=== PATIENT | male | born 1970 | race Asian ===

== ENCOUNTER 2017-07-10 19:45 | Observation (INO) | payer SELFPAY ==
[2017-07-10] MEDS ORDERED: NS 0.9% 1000 ML* 1,000 ML IV ONE ×3 (19:58→21:33)
[2017-07-10] MEDS ORDERED: Aspirin 81 mg CHEW TAB* 81 MG TAB.CHEW PO ONE (19:58)
[2017-07-10] MEDS ORDERED: LORazepam INJ* 2 MG/ML 1 ML VIAL IV PUSH ONE (19:59)
[2017-07-10] MEDS ORDERED: Famotidine TAB* 20 MG PO ONE (19:59)
[2017-07-10 20:29] LABS: ABS Basophils 0 10^3/ul (0-0.2); ABS Eosinophils 0 10^3/ul (0-0.6); ABS Lymphocytes 0.6 10^3/ul (1.0-4.8); ABS Monocytes 0.4 10^3/ul (0-0.8); ABS Neutrophils 5.8 10^3/ul (1.5-7.7); ABS Nucleated RBC 0 10^3/ul; Eosinophil % 0.6 % (0-6); Hematocrit 49 % (42-52); Hemoglobin 16.3 g/dl (14.0-18.0); Lymphocyte % 9.3 % (25-47); Mean Corpuscular HGB Conc 33 g/dl (31-36); Mean Corpuscular Hemoglobin 30 pg (27-31); Mean Corpuscular Volume 91 fL (80-94); Nucleated Red Blood Cells % 0; Platelet Count 158 10^3/ul (150-450); Red Blood Count 5.41 10^6/ul (4.0-5.4); Red Cell Distribution Width 15 % (10.5-15); White Blood Count 6.9 10^3/ul (3.5-10.8)
[2017-07-10 20:32] LABS: INR 0.93 (0.77-1.02)
--- NOTE | 2017-07-10 20:41 | RAD ---
Indication: Shortness of breath, chest pain. Arrhythmia. Comparison: April 14, 2008 CT abdomen Technique: Upright AP 2020 hours Report: Clear lungs and pleural spaces. Negative for pneumothorax. The heart, pulmonary vasculature, and mediastinal contours are unremarkable. Unremarkable osseous structures and soft tissue contours. IMPRESSION: No evidence for acute intrathoracic disease.
[2017-07-10 20:42] LABS: EGFR Non-African American 87.8 (>60)
[2017-07-10] MEDS ORDERED: Metoprolol Tartrate IV* 1 MG/ML 5 ML VIAL IV ONE (21:33)
[2017-07-10] MEDS ORDERED: Labetalol IV* 5 MG/ML 20 ML VIAL IV PUSH ONE (22:38)
--- NOTE | 2017-07-11 02:05 | ED ---
Guillermo Hunt Gabriel, scribed for Mayco Thakkar MD on 07/10/17 at 1958 . HPI Chest Pain - HPI Summary HPI Summary: This patient is a 47 year old M presenting to [facility] accompanied by his with a chief complaint of CP that began an hour ago. The pain began at rest and located diffusely. The patient rates the pain 5/10 in severity. Patient reports SOB, fatigue, decreased sleep, increased EtOH, and depression due to recent of his mother. Pt states he felt ill since last night but the CP did not begin till this morning. Hx HTN and fibromyalgia. Family history of CAD. - History of Current Complaint Chief Complaint: EDChestPainROMI Time Seen by Provider: 07/10/17 19:51 Hx Obtained From: Patient Onset/Duration: Started Hours Ago - 1, Still Present Timing: Constant Initial Severity: Moderate Current Severity: Moderate Pain Intensity: 5 Pain Scale Used: 0-10 Numeric Chest Pain Location: Diffuse Chest Pain Radiates: No Associated Signs and Symptoms: Positive: Other: - SOB, fatigue, decreased sleep , increased EtOH, depression due to recent of his mother, - Allergy/Home Medications Allergies/Adverse Reactions: Allergies Allergy/AdvReac Type Severity Reaction Status Date / Time cashew nut Allergy See Comment Verified 07/10/17 20:33 MS Amoxicillin [Amoxicillin] Allergy GI Upset Verified 02/11/14 16:42 Home Medications: Home Medications Multivitamins/Minerals TAB* [Theragran/minerals TAB*] 1 tab PO DAILY 07/10/17 [ History Confirmed 07/10/17] Sertraline* [Zoloft*] 200 mg PO QAM 07/10/17 [History Confirmed 07/10/17] clonazePAM TAB(*) [KlonoPIN TAB(*)] 2 mg PO QPM PRN 07/10/17 [History Confirmed 07/10/17] PMH/Surg Hx/FS Hx/Imm Hx Cardiovascular History: Reports: Hx Hypertension Musculoskeletal History: Reports: Hx Fibromyalgia Psychiatric History: Denies: Hx Eating Disorder, Hx of Violent Episodes Against Others Infectious Disease History: No Infectious Disease History: Denies: Traveled Outside the [place] in Last 30 Days - Family History Known Family History: Positive: Cardiac Disease, Hypertension Negative: Diabetes, Renal Disease - Social History Occupation: Employed Full-time - self Lives: With Family Alcohol Use: None Substance Use Type: Reports: Other Substance Use Comment - Amount & Last Used: UNKNOWN Smoking Status (MU): Never Smoked Tobacco Review of Systems Positive: Other - and increased alcohol use Positive: Chest Pain Positive: Shortness Of Breath Positive: Depressed - due to mothers All Other Systems Reviewed And Are Negative: Yes Physical Exam - Summary Physical Exam Summary: Appearance: Well appearing, no pain distress, flat affect, no distress Skin: warm, dry, reflects adequate perfusion Head/face: normal Eyes: EOMI, MICHELET ENT: normal Neck: supple, non-tender Respiratory: CTA, breath sounds present Cardiovascular: tachy but regular, pulses symmetrical, hypertensive Abdomen: non-tender, soft Bowel Sounds: present Musculoskeletal: normal, strength/ROM intact Neuro: normal, sensory motor intact, A&Ox3 Triage Information Reviewed: Yes Vital Signs On Initial Exam: Initial Vitals Temp Pulse Resp BP Pulse Ox 98.7 F 124 22 178/112 98 07/10/17 19:47 07/10/17 19:47 07/10/17 19:47 07/10/17 19:47 07/10/17 19:47 Vital Signs Reviewed: Yes Diagnostics - Vital Signs Vital Signs Temp Pulse Resp BP Pulse Ox 07/10/17 19:47 98.7 F 124 22 178/112 98 - Laboratory Lab Results: Lab Results 07/10/17 07/10/17 07/10/17 Range/Units 20:05 20:05 20:05 WBC 6.9 (3.5-10.8) 10^3/ul RBC 5.41 H (4.0-5.4) 10^6/ul Hgb 16.3 (14.0-18.0) g/dl Hct 49 (42-52) % MCV 91 (80-94) fL MCH 30 (27-31) pg MCHC 33 (31-36) g/dl RDW 15 (10.5-15) % Plt Count 158 (150-450) 10^3/ul MPV 9.0 (7.4-10.4) um3 Neut % (Auto) 83.6 H (38-83) % Lymph % (Auto) 9.3 L (25-47) % [place] % (Auto) 6.3 (0-7) % Eos % (Auto) 0.6 (0-6) % Baso % (Auto) 0.2 (0-2) % Absolute Neuts (auto) 5.8 (1.5-7.7) 10^3/ul Absolute Lymphs (auto) 0.6 L (1.0-4.8) 10^3/ul Absolute Monos (auto) 0.4 (0-0.8) 10^3/ul Absolute Eos (auto) 0 (0-0.6) 10^3/ul Absolute Basos (auto) 0 (0-0.2) 10^3/ul Absolute Nucleated RBC 0 10^3/ul Nucleated RBC % 0 INR (Anticoag Therapy) 0.93 (0.77-1.02) APTT 29.6 (26.0-36.3) seconds D-Dimer, Quantitative < 200 (Less Than 230) ng/mL Sodium (139-145) mmol/L Potassium (3.5-5.0) mmol/L Chloride (101-111) mmol/L Carbon Dioxide (22-32) mmol/L Anion Gap (2-11) mmol/L BUN (6-24) mg/dL Creatinine (0.67-1.17) mg/dL Est GFR ( Amer) (>60) Est GFR (Non-Af Amer) (>60) BUN/Creatinine Ratio (8-20) Glucose (70-100) mg/dL Lactic Acid (0.5-2.0) mmol/L Calcium (8.6-10.3) mg/dL Total Bilirubin (0.2-1.0) mg/dL AST (13-39) U/L ALT (7-52) U/L Alkaline Phosphatase (34-104) U/L Troponin I (<0.04) ng/mL B-Natriuretic Peptide 37 ( - 100) pg/mL Total Protein (6.4-8.9) g/dL Albumin (3.2-5.2) g/dL Globulin (2-4) g/dL Albumin/Globulin Ratio (1-3) Lipase (11.0-82.0) U/L TSH (0.34-5.60) mcIU/mL Serum Alcohol (<10) mg/dL 07/10/17 07/10/17 07/10/17 Range/Units 20:05 20:05 22:55 WBC (3.5-10.8) 10^3/ul RBC (4.0-5.4) 10^6/ul Hgb (14.0-18.0) g/dl Hct (42-52) % MCV (80-94) fL MCH (27-31) pg MCHC (31-36) g/dl RDW (10.5-15) % Plt Count (150-450) 10^3/ul MPV (7.4-10.4) um3 Neut % (Auto) (38-83) % Lymph % (Auto) (25-47) % [place] % (Auto) (0-7) % Eos % (Auto) (0-6) % Baso % (Auto) (0-2) % Absolute Neuts (auto) (1.5-7.7) 10^3/ul Absolute Lymphs (auto) (1.0-4.8) 10^3/ul Absolute Monos (auto) (0-0.8) 10^3/ul Absolute Eos (auto) (0-0.6) 10^3/ul Absolute Basos (auto) (0-0.2) 10^3/ul Absolute Nucleated RBC 10^3/ul Nucleated RBC % INR (Anticoag Therapy) (0.77-1.02) APTT (26.0-36.3) seconds D-Dimer, Quantitative (Less Than 230) ng/mL Sodium 137 L (139-145) mmol/L Potassium 3.9 (3.5-5.0) mmol/L Chloride 98 L (101-111) mmol/L Carbon Dioxide 28 (22-32) mmol/L Anion Gap 11 (2-11) mmol/L BUN 13 (6-24) mg/dL Creatinine 0.92 (0.67-1.17) mg/dL Est GFR ( Amer) 112.9 (>60) Est GFR (Non-Af Amer) 87.8 (>60) BUN/Creatinine Ratio 14.1 (8-20) Glucose 178 H (70-100) mg/dL Lactic Acid 4.4 H* (0.5-2.0) mmol/L Calcium 9.3 (8.6-10.3) mg/dL Total Bilirubin 1.00 (0.2-1.0) mg/dL AST 37 (13-39) U/L ALT 42 (7-52) U/L Alkaline Phosphatase 49 (34-104) U/L Troponin I 0.01 0.01 (<0.04) ng/mL B-Natriuretic Peptide ( - 100) pg/mL Total Protein 8.2 (6.4-8.9) g/dL Albumin 4.6 (3.2-5.2) g/dL Globulin 3.6 (2-4) g/dL Albumin/Globulin Ratio 1.3 (1-3) Lipase < 10 L (11.0-82.0) U/L TSH 0.80 (0.34-5.60) mcIU/mL Serum Alcohol < 10 (<10) mg/dL Result Diagrams: 07/10/17 20:05 07/10/17 20:05 Lab Statement: Any lab studies that have been ordered have been reviewed, and results considered in the medical decision making process. - Radiology CXR Radiology Interpretation Completed By: Radiologist - No evidence for acute intrathoracic disease. ED physician has reviewed this report. - EKG 1944 Cardiac Rate: Tachycardia EKG Rhythm: Sinus Tachycardia - at 113 BPM EKG Interpretation: nml axis, LVH criteria, nml ST Re-Evaluation - Re-Evaluation First Eval Re-Evaluation Time: 21:33 Change: Improved Comment: The patient's pain has resolved but he is still hypertensive. Second Eval Re-Evaluation Time: 22:10 Change: Improved Comment: Pt states he would like to go home. I offered him admission and he declined. Third Eval Re-Evaluation Time: 22:40 Change: Unchanged Comment: I suggested the patient should be admitted and he agrees. Chest Pain Course/Dx - Course Course Of Treatment: Pt with CP and hx of not sleeping due to bereavement. Also drinking heavily for last 2mo or so since mother . CP improved with tx here but pt remains hypertensive. IV labetalol given. Neg lipase. 1st trop neg. D/W hospitalist who will admit. Neg ddimer. - Chest Pain Differential Diagnosis/HQI/PQRI: Acute ID, ACS, GI Disease, Other: - pancreatitis - Diagnoses Provider Diagnoses: Chest pain, HTN (hypertension), Alcoholism, Adjustment disorder - Provider Notifications Discussed Care Of Patient With: Ricardo Anderson Time Discussed With Above Provider: 22:39 Instructed by Provider To: Admit As Inpatient Discharge - Sign-Out/Discharge Documenting (check all that apply): Discharge - Discharge Plan Condition: Fair Disposition: ADMITTED TO [facility] - Billing Disposition and Condition Condition: FAIR Disposition: [facility] The documentation as recorded by the Guillermo arias Gabriel accurately reflects the service I personally performed and the decisions made by me, Mayco Thakkar MD.
--- NOTE | 2017-07-11 03:34 | HP ---
H&P (Free Text) History and Physical: PCP: Candido Parsons MD Date/Time: 07/11/2017 0030 CC: chest pain HPI: Mr Larios is a 47YO male HX fibromyalgia who presents with onset Friday evening ~1800 of sharp non-radiating non-exertional L anterior chest pain associated with SOB, palpiations, light-headedness, & sweats, but no N/V, cough, congestion, or other issues. He denies change in activity or injury. There are no exacerbating or alleviating factors. He also reports some associated weakness of the LUE, but no other weakness, numbness, tingling, change in speech/swallow/vision, or other issues. He had a similar episode ~1 week ago. The symptoms wax and wane, but tonight were continuous for ~1 hour prompting him to present for evaluation. Symptoms have no alleviating factors, but are worse if he doesn't sleep well. He is currently pain free. Of note, he states he has been drinking > a fifth of liquor daily for the past week due to stress from his mother's passing. However, when asked when she passed he replies , "March". While in the ED, he did become tackycardic into the 110s which resolved with lorazepam. 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[employer]; full code status FamHx: Mother: passed at 73 2nd CAD in Mar 2017; Father: passed at 29 in a MVA; 2 brothers: one's health unknown, the other with "stomach problems" ROS: as above, otherwise reviewed and all were negative vitals: Vital Signs Temp 36.7 C 07/11/17 02:46 Pulse 74 07/11/17 02:46 Resp 16 07/11/17 02:46 BP 136/85 07/11/17 02:46 Pulse Ox 97 07/11/17 02:46 Intake & Output 07/10/17 07/10/17 07/11/17 11:59 23:59 11:59 Intake Total 4000 Balance 4000 Weight 90.718 kg 90.809 kg Intake: IV Fluids 1999 IVPB 1999 Constitutional: NAD, normally developed, obese male HEENM: atraumatic; sclera/conjunctiva: anicteric/clear; hearing: clinically intact; oropharynx: clear, moist Neck: soft tissue: non-tender; thyroid: normal Pulmonary: clear to auscultation bilaterally, good aeration, no accessory muscle use CV: RR/RR, normal S1S2, no carotid bruit, no jugular venous distention, 2+ B DP/ PT, no edema Abdominal: soft, non-distended, non-tender, no rebound/guarding/rigidity, normoactive bowel sounds, no hepatosplenomegaly or masses, no costovertebral angle tenderness Musculoskeletal: general: grossly intact; gait: normal Integumental: normal appearance and texture of exposed skin Psychiatric orientation: AA&O to PPS affect: calm mood: cooperative eye contact: fair to good content: mostly reliable responses: timely insight: fair Testing: Lab Results 07/10/17 07/10/17 07/10/17 Range/Units 20:05 20:05 20:05 WBC 6.9 (3.5-10.8) 10^3/ul RBC 5.41 H (4.0-5.4) 10^6/ul Hgb 16.3 (14.0-18.0) g/dl Hct 49 (42-52) % MCV 91 (80-94) fL MCH 30 (27-31) pg MCHC 33 (31-36) g/dl RDW 15 (10.5-15) % Plt Count 158 (150-450) 10^3/ul MPV 9.0 (7.4-10.4) um3 Neut % (Auto) 83.6 H (38-83) % Lymph % (Auto) 9.3 L (25-47) % [place] % (Auto) 6.3 (0-7) % Eos % (Auto) 0.6 (0-6) % Baso % (Auto) 0.2 (0-2) % Absolute Neuts (auto) 5.8 (1.5-7.7) 10^3/ul Absolute Lymphs (auto) 0.6 L (1.0-4.8) 10^3/ul Absolute Monos (auto) 0.4 (0-0.8) 10^3/ul Absolute Eos (auto) 0 (0-0.6) 10^3/ul Absolute Basos (auto) 0 (0-0.2) 10^3/ul Absolute Nucleated RBC 0 10^3/ul Nucleated RBC % 0 INR (Anticoag Therapy) 0.93 (0.77-1.02) APTT 29.6 (26.0-36.3) seconds D-Dimer, Quantitative < 200 (Less Than 230) ng/mL Sodium (139-145) mmol/L Potassium (3.5-5.0) mmol/L Chloride (101-111) mmol/L Carbon Dioxide (22-32) mmol/L Anion Gap (2-11) mmol/L BUN (6-24) mg/dL Creatinine (0.67-1.17) mg/dL Est GFR ( Amer) (>60) Est GFR (Non-Af Amer) (>60) BUN/Creatinine Ratio (8-20) Glucose (70-100) mg/dL Lactic Acid (0.5-2.0) mmol/L Calcium (8.6-10.3) mg/dL Total Bilirubin (0.2-1.0) mg/dL AST (13-39) U/L ALT (7-52) U/L Alkaline Phosphatase (34-104) U/L Troponin I (<0.04) ng/mL B-Natriuretic Peptide 37 ( - 100) pg/mL Total Protein (6.4-8.9) g/dL Albumin (3.2-5.2) g/dL Globulin (2-4) g/dL Albumin/Globulin Ratio (1-3) Lipase (11.0-82.0) U/L TSH (0.34-5.60) mcIU/mL Serum Alcohol (<10) mg/dL 07/10/17 07/10/17 07/10/17 Range/Units 20:05 20:05 22:55 WBC (3.5-10.8) 10^3/ul RBC (4.0-5.4) 10^6/ul Hgb (14.0-18.0) g/dl Hct (42-52) % MCV (80-94) fL MCH (27-31) pg MCHC (31-36) g/dl RDW (10.5-15) % Plt Count (150-450) 10^3/ul MPV (7.4-10.4) um3 Neut % (Auto) (38-83) % Lymph % (Auto) (25-47) % [place] % (Auto) (0-7) % Eos % (Auto) (0-6) % Baso % (Auto) (0-2) % Absolute Neuts (auto) (1.5-7.7) 10^3/ul Absolute Lymphs (auto) (1.0-4.8) 10^3/ul Absolute Monos (auto) (0-0.8) 10^3/ul Absolute Eos (auto) (0-0.6) 10^3/ul Absolute Basos (auto) (0-0.2) 10^3/ul Absolute Nucleated RBC 10^3/ul Nucleated RBC % INR (Anticoag Therapy) (0.77-1.02) APTT (26.0-36.3) seconds D-Dimer, Quantitative (Less Than 230) ng/mL Sodium 137 L (139-145) mmol/L Potassium 3.9 (3.5-5.0) mmol/L Chloride 98 L (101-111) mmol/L Carbon Dioxide 28 (22-32) mmol/L Anion Gap 11 (2-11) mmol/L BUN 13 (6-24) mg/dL Creatinine 0.92 (0.67-1.17) mg/dL Est GFR ( Amer) 112.9 (>60) Est GFR (Non-Af Amer) 87.8 (>60) BUN/Creatinine Ratio 14.1 (8-20) Glucose 178 H (70-100) mg/dL Lactic Acid 4.4 H* (0.5-2.0) mmol/L Calcium 9.3 (8.6-10.3) mg/dL Total Bilirubin 1.00 (0.2-1.0) mg/dL AST 37 (13-39) U/L ALT 42 (7-52) U/L Alkaline Phosphatase 49 (34-104) U/L Troponin I 0.01 0.01 (<0.04) ng/mL B-Natriuretic Peptide ( - 100) pg/mL Total Protein 8.2 (6.4-8.9) g/dL Albumin 4.6 (3.2-5.2) g/dL Globulin 3.6 (2-4) g/dL Albumin/Globulin Ratio 1.3 (1-3) Lipase < 10 L (11.0-82.0) U/L TSH 0.80 (0.34-5.60) mcIU/mL Serum Alcohol < 10 (<10) mg/dL 07/11/17 Range/Units 01:34 WBC (3.5-10.8) 10^3/ul RBC (4.0-5.4) 10^6/ul Hgb (14.0-18.0) g/dl Hct (42-52) % MCV (80-94) fL MCH (27-31) pg MCHC (31-36) g/dl RDW (10.5-15) % Plt Count (150-450) 10^3/ul MPV (7.4-10.4) um3 Neut % (Auto) (38-83) % Lymph % (Auto) (25-47) % Cross % (Auto) (0-7) % Eos % (Auto) (0-6) % Baso % (Auto) (0-2) % Absolute Neuts (auto) (1.5-7.7) 10^3/ul Absolute Lymphs (auto) (1.0-4.8) 10^3/ul Absolute Monos (auto) (0-0.8) 10^3/ul Absolute Eos (auto) (0-0.6) 10^3/ul Absolute Basos (auto) (0-0.2) 10^3/ul Absolute Nucleated RBC 10^3/ul Nucleated RBC % INR (Anticoag Therapy) (0.77-1.02) APTT (26.0-36.3) seconds D-Dimer, Quantitative (Less Than 230) ng/mL Sodium (139-145) mmol/L Potassium (3.5-5.0) mmol/L Chloride (101-111) mmol/L Carbon Dioxide (22-32) mmol/L Anion Gap (2-11) mmol/L BUN (6-24) mg/dL Creatinine (0.67-1.17) mg/dL Est GFR ( Amer) (>60) Est GFR (Non-Af Amer) (>60) BUN/Creatinine Ratio (8-20) Glucose (70-100) mg/dL Lactic Acid 1.5 (0.5-2.0) mmol/L Calcium (8.6-10.3) mg/dL Total Bilirubin (0.2-1.0) mg/dL AST (13-39) U/L ALT (7-52) U/L Alkaline Phosphatase (34-104) U/L Troponin I (<0.04) ng/mL B-Natriuretic Peptide ( - 100) pg/mL Total Protein (6.4-8.9) g/dL Albumin (3.2-5.2) g/dL Globulin (2-4) g/dL Albumin/Globulin Ratio (1-3) Lipase (11.0-82.0) U/L TSH (0.34-5.60) mcIU/mL Serum Alcohol (<10) mg/dL ECG, personally reviewed: sinus tachycardia rate 113, mild ST depression V4-5 CXR, personally reviewed: IMPRESSION: No evidence for acute intrathoracic disease. Impression: 47M presenting with chest pain for r/o ACS, concern for alcohol withdrawal DIAGNOSIS & PLAN Primary chest pain r/o ACS : aspirin given by ED : telemetry : trend troponin : supplemental oxygen : chemical NST in AM : supportive care concern for alcohol withdrawal : WA protocol hyperglycemia, mild : check A1c Secondary fibromyalgia : continue sertraline & clonazepam Admission Rational: observation for r/o ACS DVTp: heparin SQ Code Status: full
[2017-07-11] MEDS ORDERED: CMCS: Melatonin (NF) 3 MG TAB PO PRN (03:44)
[2017-07-11] MEDS ORDERED: Acetaminophen TAB* 325 MG PO PRN (03:44)
[2017-07-11] MEDS ORDERED: Ondansetron INJ* 2 MG/ML VIAL IV PRN (03:44)
[2017-07-11] MEDS ORDERED: NS 0.9% 1000 ML* 1,000 ML IV SCH (03:45)
[2017-07-11] MEDS ORDERED: Thiamine IV* 100 MG/ML 2 ML VIAL IM ONE (03:45)
[2017-07-11] MEDS ORDERED: clonazePAM TAB(*) 1 MG PO PRN (03:46)
[2017-07-11] MEDS ORDERED: LORazepam INJ* 2 MG/ML 1 ML VIAL IV PUSH SCH (04:00)
[2017-07-11] MEDS: Heparin VIAL(*) 5000 UNITS/ML VIAL (FIVE THOUSAND) SUBCUT SCH ×2 (04:30→15:35)
[2017-07-11 05:32] LABS: ABS Basophils 0 10^3/ul (0-0.2); ABS Eosinophils 0.1 10^3/ul (0-0.6); ABS Lymphocytes 1.6 10^3/ul (1.0-4.8); ABS Monocytes 0.6 10^3/ul (0-0.8); ABS Neutrophils 4.4 10^3/ul (1.5-7.7); ABS Nucleated RBC 0 10^3/ul; Eosinophil % 1.9 % (0-6); Hematocrit 43 % (42-52); Hemoglobin 14.7 g/dl (14.0-18.0); Lymphocyte % 24.2 % (25-47); Mean Corpuscular HGB Conc 34 g/dl (31-36); Mean Corpuscular Hemoglobin 31 pg (27-31); Mean Corpuscular Volume 90 fL (80-94); Mean Platelet Volume 9.3 um3 (7.4-10.4); Nucleated Red Blood Cells % 0.1; Platelet Count 141 10^3/ul (150-450); Red Blood Count 4.76 10^6/ul (4.0-5.4); Red Cell Distribution Width 15 % (10.5-15); White Blood Count 6.7 10^3/ul (3.5-10.8)
[2017-07-11 05:42] LABS: INR 0.96 (0.77-1.02)
[2017-07-11 05:48] LABS: EGFR Non-African American 93.7 (>60)
[2017-07-11] MEDS ORDERED: Omeprazole CAP* 20 MG PO SCH (06:00)
[2017-07-11] MEDS ORDERED: Docusate CAP* 100 MG PO SCH (09:00)
[2017-07-11] MEDS ORDERED: Sertraline* 100 MG TAB PO SCH (09:00)
[2017-07-11] MEDS ORDERED: Multivitamins/Minerals TAB PO SCH (09:00)
[2017-07-11] MEDS ORDERED: Thiamine TAB* 100 MG TAB PO SCH (09:00)
[2017-07-11] MEDS ORDERED: Folic Acid TAB* 1 MG PO SCH (09:00)
--- NOTE | 2017-07-11 10:47 | PN ---
Subjective Date of Service: 07/11/17 Interval History: Patient was seen and examined at bedside. Reports doing very well overall. Denies any recurrent chest pain, palpitations or SOB. Has been ambulatory, had first portion of stress test, waiting for the second part, NPO. Denies any tremors, anxiety or agitation. He has no c/o today. Family History: Unchanged from Admission Social History: Unchanged from Admission Past Medical History: Unchanged from Admission Objective Active Medications: Acetaminophen (Tylenol Tab*) 650 mg PO Q6H PRN PRN Reason: FEVER/PAIN Aspirin (Aspirin Ec Tab*) 81 mg PO DAILY [facility] Clonazepam (Klonopin Tab(*)) 2 mg PO QPM PRN PRN Reason: ANXIETY Docusate Sodium (Colace Cap*) 200 mg PO BID [facility] Last Admin: 07/11/17 10:33 Dose: 200 mg Folic Acid (Folvite Tab*) 1 mg PO DAILY [facility] Last Admin: 07/11/17 10:33 Dose: 1 mg Heparin Sodium (Porcine) (Heparin Vial(*)) 5,000 units SUBCUT Q8HR [facility] Last Admin: 07/11/17 04:30 Dose: 5,000 units Sodium Chloride (Ns 0.9% 1000 Ml*) 1,000 mls @ 75 mls/hr IV PER RATE [facility] Last Admin: 07/11/17 04:28 Dose: 75 mls/hr Lorazepam (Ativan Inj*) 0 - 6 mg IV PUSH .PER [facility] PROTOCOL [facility] PRN Reason: Protocol Melatonin (Melatonin (Nf)) 3 mg PO BEDTIME PRN; Protocol PRN Reason: Sleep Multivitamins/Minerals (Theragran/Minerals Tab*) 1 tab PO DAILY [facility] Last Admin: 07/11/17 10:33 Dose: 1 tab Omeprazole (Prilosec Cap*) 20 mg PO DAILY@0600 [facility] Last Admin: 07/11/17 04:30 Dose: 20 mg Ondansetron HCl (Zofran Inj*) 4 mg IV Q6H PRN PRN Reason: NAUSEA Sertraline HCl (Zoloft*) 200 mg PO QAM [facility] Last Admin: 07/11/17 10:32 Dose: 200 mg Thiamine HCl (Vitamin B-1 Tab*) 100 mg PO DAILY [facility] Last Admin: 07/11/17 10:33 Dose: 100 mg Vital Signs - 8 hr 07/11/17 07/11/17 02:46 03:46 Temperature 98.1 F 97.4 F Pulse Rate 74 72 Respiratory 16 16 Rate Blood Pressure 136/85 134/78 (mmHg) O2 Sat by Pulse 97 100 Oximetry Oxygen Devices in Use Now: None Appearance: Alert and oriented, very pleasant, sitting in his chair, comfortable and in NAD. Eyes: No Scleral Icterus, PERRLA Ears/Nose/Mouth/Throat: Clear Oropharnyx, Mucous Membranes Moist Neck: NL Appearance and Movements; NL JVP, Trachea Midline Respiratory: Symmetrical Chest Expansion and Respiratory Effort, Clear to Auscultation Cardiovascular: NL Sounds; No Murmurs; No JVD, RRR Abdominal: NL Sounds; No Tenderness; No Distention, No Hepatosplenomegaly Lymphatic: No Cervical Adenopathy Extremities: No Edema, No Clubbing, Cyanosis Skin: No Rash or Ulcers Neurological: Alert and Oriented x 3, NL Sensation, NL Muscle Strength and Tone Lines/Tubes/Other Access: Clean, Dry and Intact Peripheral IV Result Diagrams: 07/11/17 05:13 07/11/17 05:13 Additional Lab and Data: Lab Results 07/10/17 07/10/17 07/10/17 Range/Units 20:05 20:05 20:05 WBC 6.9 (3.5-10.8) 10^3/ul RBC 5.41 H (4.0-5.4) 10^6/ul Hgb 16.3 (14.0-18.0) g/dl Hct 49 (42-52) % MCV 91 (80-94) fL MCH 30 (27-31) pg MCHC 33 (31-36) g/dl RDW 15 (10.5-15) % Plt Count 158 (150-450) 10^3/ul MPV 9.0 (7.4-10.4) um3 Neut % (Auto) 83.6 H (38-83) % Lymph % (Auto) 9.3 L (25-47) % Charlton % (Auto) 6.3 (0-7) % Eos % (Auto) 0.6 (0-6) % Baso % (Auto) 0.2 (0-2) % Absolute Neuts (auto) 5.8 (1.5-7.7) 10^3/ul Absolute Lymphs (auto) 0.6 L (1.0-4.8) 10^3/ul Absolute Monos (auto) 0.4 (0-0.8) 10^3/ul Absolute Eos (auto) 0 (0-0.6) 10^3/ul Absolute Basos (auto) 0 (0-0.2) 10^3/ul Absolute Nucleated RBC 0 10^3/ul Nucleated RBC % 0 INR (Anticoag Therapy) 0.93 (0.77-1.02) APTT 29.6 (26.0-36.3) seconds D-Dimer, Quantitative < 200 (Less Than 230) ng/mL Sodium (139-145) mmol/L Potassium (3.5-5.0) mmol/L Chloride (101-111) mmol/L Carbon Dioxide (22-32) mmol/L Anion Gap (2-11) mmol/L BUN (6-24) mg/dL Creatinine (0.67-1.17) mg/dL Est GFR ( Amer) (>60) Est GFR (Non-Af Amer) (>60) BUN/Creatinine Ratio (8-20) Glucose (70-100) mg/dL Lactic Acid (0.5-2.0) mmol/L Calcium (8.6-10.3) mg/dL Total Bilirubin (0.2-1.0) mg/dL AST (13-39) U/L ALT (7-52) U/L Alkaline Phosphatase (34-104) U/L Troponin I (<0.04) ng/mL B-Natriuretic Peptide 37 ( - 100) pg/mL Total Protein (6.4-8.9) g/dL Albumin (3.2-5.2) g/dL Globulin (2-4) g/dL Albumin/Globulin Ratio (1-3) Lipase (11.0-82.0) U/L TSH (0.34-5.60) mcIU/mL Serum Alcohol (<10) mg/dL 07/10/17 07/10/17 07/10/17 Range/Units 20:05 20:05 22:55 WBC (3.5-10.8) 10^3/ul RBC (4.0-5.4) 10^6/ul Hgb (14.0-18.0) g/dl Hct (42-52) % MCV (80-94) fL MCH (27-31) pg MCHC (31-36) g/dl RDW (10.5-15) % Plt Count (150-450) 10^3/ul MPV (7.4-10.4) um3 Neut % (Auto) (38-83) % Lymph % (Auto) (25-47) % Charlton % (Auto) (0-7) % Eos % (Auto) (0-6) % Baso % (Auto) (0-2) % Absolute Neuts (auto) (1.5-7.7) 10^3/ul Absolute Lymphs (auto) (1.0-4.8) 10^3/ul Absolute Monos (auto) (0-0.8) 10^3/ul Absolute Eos (auto) (0-0.6) 10^3/ul Absolute Basos (auto) (0-0.2) 10^3/ul Absolute Nucleated RBC 10^3/ul Nucleated RBC % INR (Anticoag Therapy) (0.77-1.02) APTT (26.0-36.3) seconds D-Dimer, Quantitative (Less Than 230) ng/mL Sodium 137 L (139-145) mmol/L Potassium 3.9 (3.5-5.0) mmol/L Chloride 98 L (101-111) mmol/L Carbon Dioxide 28 (22-32) mmol/L Anion Gap 11 (2-11) mmol/L BUN 13 (6-24) mg/dL Creatinine 0.92 (0.67-1.17) mg/dL Est GFR ( Amer) 112.9 (>60) Est GFR (Non-Af Amer) 87.8 (>60) BUN/Creatinine Ratio 14.1 (8-20) Glucose 178 H (70-100) mg/dL Lactic Acid 4.4 H* (0.5-2.0) mmol/L Calcium 9.3 (8.6-10.3) mg/dL Total Bilirubin 1.00 (0.2-1.0) mg/dL AST 37 (13-39) U/L ALT 42 (7-52) U/L Alkaline Phosphatase 49 (34-104) U/L Troponin I 0.01 0.01 (<0.04) ng/mL B-Natriuretic Peptide ( - 100) pg/mL Total Protein 8.2 (6.4-8.9) g/dL Albumin 4.6 (3.2-5.2) g/dL Globulin 3.6 (2-4) g/dL Albumin/Globulin Ratio 1.3 (1-3) Lipase < 10 L (11.0-82.0) U/L TSH 0.80 (0.34-5.60) mcIU/mL Serum Alcohol < 10 (<10) mg/dL Diagnostic Imaging: Patient Name: YAMILEX MEZA Medical Record#: [id number] Ordering Physician: Mayco Thakkar MD Acct.#: [id number] : 1970 Age: 47 Sex: M Location: EMERGENCY DEPARTMENT Exam Date: 07/10/171957 ADM Status: REG ER Order Information: CHEST AP PORTABLE Accession Number: [id number] CPT: 87668 Indication: Shortness of breath, chest pain. Arrhythmia. IMPRESSION: No evidence for acute intrathoracic disease. EKG Data: EKG INTERPRETATION ECG Report Patient Name YAMILEX MEZA Birthdate 1970 Sex M Order Number [id number] Date of ECG 07/10/2017 19:45:53 Interpretation Sinus tachycardia.rate> 99 Probable left atrial enlargement.P >50mS, <-0.10mV V1 Left ventricular hypertrophy.multiple voltage criteria - ABNORMAL ECG - Assess/Plan/Problems-Billing Assessment: A 47 y/o male with Hx fibromyalgia, who presented to ED with chest pain, with negative caridac work-up so far; admitted for close observation and to r/o ACS ; with concern for ETOH withdrawal. - Patient Problems (1) Chest pain Current Visit: Yes Status: Acute Comment: - Chest pain with normal Troponin series and no acute changes on EKG - Await nuclear stress test findings - Aspirin given by ED - Telemetry monitoring, Vitals stable, no recurrent chest pain - Trend troponin, WNL - Supplemental oxygen : supportive care (2) Alcohol withdrawal Current Visit: Yes Comment: - Stable, no signs or symptoms of withdrawal - Continue WAM protocol (3) Anxiety Current Visit: No Comment: - Continue Clonazepam and Zoloft (4) Fibromyalgia Current Visit: No Comment: - Stable (5) DVT prophylaxis Current Visit: Yes Comment: - SubQ Heparin (6) Full code status Current Visit: Yes Comment: He is full code Status and Disposition: Tele for close observation. Await stress test results. If low risk, likely to d/ c to home this afternoon.
[2017-07-11] MEDS ORDERED: Regadenoson* 0.4 MG/5 ML SYRINGE ONE (11:31)
[2017-07-11] MEDS ORDERED: Aminophylline IV* 25 MG/ML 10 ML VIAL ONE (11:31)
--- NOTE | 2017-07-11 13:27 | RAD ---
Edited for charges. INDICATION: Chest pain. COMPARISON: No relevant prior exams available on the [facility] [place] PACS for comparison. TECHNIQUE: 10.300 mCi of Tc-99m Myoview were administered IV. SPECT images of the heart were obtained. Later on the same day. Under the direction of Dr. Landeros, the patient was given an IV injection of a pharmacologic stress agent. Subsequently, the patient was given an IV injection of 25.640 mCi Tc-99m Myoview. SPECT images of the heart were obtained and a gated wall motion study was performed. FINDINGS: Gated wall motion images were obtained at stress and demonstrate wall motion to be within normal limits. The calculated left ventricular ejection fraction is 61 % at stress. Estimated LEFT ventricular end diastolic volume is 99 mL. TID 1.09. Based on review of the attenuation corrected and non corrected images the distribution of radiopharmaceutical within the myocardium on the stress and rest images is within normal limits. No fixed or reversible regions of hypoperfusion evident. IMPRESSION: 1. No evidence for stress induced myocardial ischemia or presence of an infarct. 2. Normal left ventricular wall motion and ejection fraction. ASSESSMENT: Low risk based on nuclear portion. Based on imaging criteria from ACC/AHA 2002 Guideline Update for the Management of Patients With Chronic Stable Angina Table 23. Noninvasive Risk Stratification. MTDD
[2017-07-11 15:21] VITALS: BP 154/78
--- NOTE | 2017-07-11 23:34 | DS ---
CC: Dr. Parsons * DISCHARGE SUMMARY: DATE OF ADMISSION: 07/11/17 DATE OF DISCHARGE: 07/11/17 ADMITTING PHYSICIAN: Dr. Ricardo Anderson. ATTENDING PHYSICIAN: Ren Cruz MD * (DICTATED BY OSKAR VARGAS) PRIMARY CARE PHYSICIAN: Dr. Parsons. ADMISSION DIAGNOSES: 1. History of fibromyalgia. 2. Sharp left-sided chest pain. 3. Anxiety and depression. 4. Alcohol abuse. DISCHARGE DIAGNOSES: 1. History of fibromyalgia. 2. Sharp left-sided chest pain. 3. Anxiety and depression. 4. Alcohol abuse. 5. Hypertension. 6. Impaired glucose tolerance. CONSULTATIONS: None. PROCEDURES: Nuclear stress test on 07/11/17. BRIEF MEDICAL HISTORY: Mr. Levi is a pleasant 47-year-old gentleman with a history of fibromyalgia who presented to the emergency room at the late evening hours of 07/10/17 with complaints of sharp nonradiating and nonexertional left anterior chest pain. The patient notes that his pain was associated with shortness of breath, palpitation and lightheadedness as well as diaphoresis. He denied any upper respiratory infection symptoms, nausea, vomiting, fever or chills. He denied any change in the level of his activity or any chest injury. The patient had a laboratory workup in the emergency room that essentially was unremarkable. He had a cardiac workup that revealed normal levels of troponin as well as normal EKG. He was found in the emergency room to be slightly anxious and tachycardic with sinus tachycardia at values of 110s. Given his ongoing symptoms, the patient was admitted to the telemetry unit under hospitalist services for observation overnight. HOSPITAL COURSE: The patient was admitted on the leather cleaner hours of . His chest pain upon admission was essentially resolved after administration of lorazepam in the emergency room. He was stable and his vitals was reviewed showing consistent hypertension with values of 140s/90s. He was maintained n.p.o. in anticipation for a nuclear stress test later this morning. The patient was evaluated this morning prior to his stress test. He was lying comfortable on bed and has no further complaints of chest pain. He had been running sinus rhythm at the telemetry unit all night. He had his stress test done and study was reviewed showing low risk for a coronary artery disease. The patient was hungry and requested diet. He tolerated his regular diet very well. He had no further complaints of chest pain or any other associated symptoms. His labs revealed a persistent hyperglycemia with level of 101 while fasting and his vitals showed resolution of his tachycardia; however, his blood pressure continued to be high at 140s/90s per reading. The patient was stable from a cardiac point of view for discharge and I discussed with him starting a beta-amairani given his blood pressure being high during this admission. I also discussed with him the possibility of being borderline diabetic. His hemoglobin A1c was checked and revealed a value of 7.0. He understands and he will follow up with his primary care physician, Dr. Parsons, next week. DISCHARGE MEDICATIONS: Include: 1. Clonazepam 1 mg tablet q.6 hours as needed for anxiety. 2. Metoprolol succinate 25 mg p.o. daily. 3. Multivitamin 1 tablet daily. 4. Zoloft 200 mg p.o. daily. PROBLEM LIST: 1. Chest pain likely related to anxiety and probable recent alcohol abuse. The patient was discharged in a stable condition with negative cardiac workup. 2. Hypertension. The patient was started on low dose metoprolol and he will follow with his primary care physician. 3. Impaired glucose tolerance. The patient will be followed by his primary care physician for further evaluation of possible type 2 diabetes. 4. Anxiety and depression. He will resume his clonazepam and Zoloft as prescribed. 5. History of fibromyalgia. He is currently stable. OSKAR VARGAS [id number]/[facility] #: [id number] [place]
[2017-07-12] MEDS ORDERED: Aspirin EC TAB* 81 MG TAB.EC PO SCH (09:00)
== END 2017-07-11 16:12 | disposition home or self-care (01) ==
LOC: ED 19:45 → MEDTELE 07-11 00:36
PROVIDERS: ADMIT Hospitalist; ATTEND Hospitalist
DX: R07.9 Chest pain, unspecified (principal); M79.7 Fibromyalgia; F41.8 Other specified anxiety disorders; F10.10 Alcohol abuse, uncomplicated; I10 Essential (primary) hypertension; R73.02 Impaired glucose tolerance (oral); R06.02 Shortness of breath; F43.20 Adjustment disorder, unspecified
CPT/HCPCS: 36415; 71045; 78452; 80048; 80053; 80320; 83036; 83605; 83690; 83880; 84443; 84484; 85025; 85379; 85610; 85730; 93005; 93017; 96374; 96375; 99284; A9270-GY; A9502; G0378; G0480; J0280; J1644; J2060; J2785; J3411; J3490

== ENCOUNTER 2018-09-26 11:45 | Emergency (ER) | payer BC ==
--- NOTE | 2018-09-26 12:41 | ED ---
Abdominal Pain/Female - HPI Summary HPI Summary: This patient is a 48 year old male presenting to [facility] with a chief complaint of RLQ pain since 2 weeks ago. He states the pain radiates to the suprapubic area. He reports hematuria. He denies dysuria, fever, chills, nausea, vomiting, and diarrhea. He states he still has his appendix and denies a history of kidney stones. He rates his pain 3/10 in severity. - History of Current Complaint Chief Complaint: EDUrogenitalProblems Stated Complaint: "ABD PAIN BLOOD IN URINE PER " Time Seen by Provider: 09/26/18 12:35 Hx Obtained From: Patient, Family/Road Gang Supervisor ?: No Pain Intensity: 3 Pain Scale Used: 0-10 Numeric Allergies/Adverse Reactions: Allergies Allergy/AdvReac Type Severity Reaction Status Date / Time amoxicillin Allergy GI Upset Verified 09/26/18 12:06 cashew nut Allergy Unknown Verified 09/26/18 12:06 Reaction Details Home Medications: Home Medications DULoxetine DR CAP* [Cymbalta CAP*] 30 mg PO DAILY 09/26/18 [History Confirmed ] Orphenadrine Citrate [Orphenadrine Citrate ER] 100 mg PO DAILY 09/26/18 [ History Confirmed 09/26/18] PMH/Surg Hx/FS Hx/Imm Hx Cardiovascular History: Reports: Hx Hypertension Musculoskeletal History: Reports: Hx Fibromyalgia Sensory History: Denies: Hx Contacts or Glasses, Hx Hearing Aid Opthamlomology History: Denies: Hx Contacts or Glasses Psychiatric History: Reports: Hx Anxiety, Hx Depression Denies: Hx Eating Disorder, Hx of Violent Episodes Against Others Infectious Disease History: No Infectious Disease History: Denies: Traveled Outside the [place] in Last 30 Days - Family History Known Family History: Positive: Cardiac Disease, Hypertension Negative: Diabetes, Renal Disease - Social History Alcohol Use: None Alcohol Amount: whiskey Substance Use Type: Reports: Other Substance Use Comment - Amount & Last Used: UNKNOWN Smoking Status (MU): Never Smoked Tobacco Review of Systems Negative: Fever, Chills Positive: Abdominal Pain. Negative: Vomiting, Diarrhea, Nausea Positive: hematuria. Negative: dysuria All Other Systems Reviewed And Are Negative: Yes Physical Exam - Summary Physical Exam Summary: Appearance: The patient is well-nourished in no acute distress and in no acute pain. Skin: The skin is warm and dry and skin color reflects adequate perfusion. HEENT: The head is normocephalic and atraumatic. The pupils are equal and reactive. The conjunctivae are clear and without drainage. Nares are patent and without drainage. Mouth reveals moist mucous membranes and the throat is without erythema and exudate. The external ears are intact. The ear canals are patent and without drainage. The tympanic membranes are intact. Neck: The neck is supple with full range of motion and non-tender. There are no carotid bruits. There is no neck vein distension. Respiratory: Chest is non-tender. Lungs are clear to auscultation and breath sounds are symmetrical and equal. Cardiovascular: Heart is regular rate and rhythm. There is no murmur or rub auscultated. There is no peripheral edema and pulses are symmetrical and equal. Abdomen: The abdomen is soft and non-tender. There are normal bowel sounds heard in all four quadrants and there is no organomegaly palpated. Musculoskeletal: There is no back tenderness noted. Extremities are non-tender with full range of motion. There is good capillary refill. There is no peripheral edema or calf tenderness elicited. Neurological: Patient is alert and oriented to person, place and time. The patient has symmetrical motor strength in all four extremities. Cranial nerves are grossly intact. Deep tendon reflexes are symmetrical and equal in all four extremities. Psychiatric: The patient has an appropriate affect and does not exhibit any anxiety or depression. Triage Information Reviewed: Yes Vital Signs On Initial Exam: Initial Vitals Temp Pulse Resp BP Pulse Ox 97.3 F 65 18 129/72 100 09/26/18 11:49 09/26/18 11:49 09/26/18 11:49 09/26/18 11:49 09/26/18 11:49 Vital Signs Reviewed: Yes Diagnostics - Vital Signs Vital Signs Temp Pulse Resp BP Pulse Ox 09/26/18 11:49 97.3 F 65 18 129/72 100 - Laboratory Result Diagrams: 09/26/18 13:12 09/26/18 13:12 Lab Statement: Any lab studies that have been ordered have been reviewed, and results considered in the medical decision making process. - CT Abd/Pelvis CT Interpretation Completed By: Radiologist Summary of CT Findings: There is a 0.3 cm calculi in the distal right ureter at the S1 level. Mild right hydronephrosis is noted. ED Provider has reviewed this report. Abdominal Pain Fem Course/Dx - Course Course Of Treatment: Mr. Levi presented with right flank pain. He was nontoxic in appearance with stable vital signs and only mild right lower quadrant tenderness. His urine showed some microscopic blood only. CT scan of his abdomen noncontrasted showed a 3 mm distal right ureteral stone with mild hydro. He'll be treated with standard therapy of ibuprofen, Flomax and fluids with the addition of tramadol for breakthrough pain. I recommended follow-up with the urologist but I expect he'll pass this stone on his own. - Diagnoses Provider Diagnoses: Kidney stone Discharge - Sign-Out/Discharge Documenting (check all that apply): Patient Departure - Discharge Patient Received Moderate/Deep Sedation with Procedure: No - Discharge Plan Condition: Stable Disposition: HOME Prescriptions: Tamsulosin CAP* [Flomax CAP*] 0.4 mg PO DAILY #7 cap traMADol TAB* [Ultram*] 50 mg PO Q6HR PRN #20 tab MDD 4 PRN Reason: Pain Patient Education Materials: Ibuprofen (By mouth), Kidney Stones (ED) Forms: *Gen. Provider Communication Referrals: Aravind Guzman MD [Medical Doctor] - Additional Instructions: Follow up with urology. Return to ED with any new or worsening symptoms. - Billing Disposition and Condition Condition: STABLE Disposition: Home - Attestation Statements Document Initiated by Joselyn: Yes Documenting Scribe: Sal Schmidt Provider For Whom Joselyn is Documenting (Include Credential): Bennie Lo MD Scribe Attestation: Sal Hunt, scribed for Bennie Lo MD on 09/26/18 at 1538. Scribe Documentation Reviewed: Yes Provider Attestation: The documentation as recorded by the Sal arias accurately reflects the service I personally performed and the decisions made by me, Bennie Lo MD Status of Scribemily Document: Viewed
[2018-09-26 12:46] LABS: Urine Appearance Cloudy; Urine Bacteria Absent (Absent); Urine Bilirubin Negative (Negative); Urine Blood 3+ (Negative); Urine Color Yellow; Urine Glucose Negative (Negative); Urine Ketones Negative (Negative); Urine Nitrite Negative (Negative); Urine Protein 1+(30 mg/dL) (Negative); Urine Red Blood Cell 3+(>10/hpf) (Absent); Urine Urobilinogen Negative (Negative); Urine White Blood Cell Absent (Absent)
[2018-09-26 13:23] LABS: ABS Eosinophils 0.2 10^3/ul (0-0.6); ABS Lymphocytes 1.5 10^3/ul (1.0-4.8); ABS Monocytes 0.4 10^3/ul (0-0.8); ABS Neutrophils 2.5 10^3/ul (1.5-7.7); Eosinophil % 3.8 %; Hematocrit 44 % (42-52); Mean Corpuscular HGB Conc 34 g/dL (31-36); Mean Corpuscular Hemoglobin 31 pg (27-31); Mean Corpuscular Volume 92 fL (80-94); Mean Platelet Volume 8.8 fL (7.4-10.4); Platelet Count 140 10^3/uL (150-450); Red Blood Count 4.81 10^6 /uL (4.18-5.48); Red Cell Distribution Width 14 % (10-15); White Blood Count 4.6 10^3/uL (3.5-10.8)
[2018-09-26 13:39] LABS: ALT 12 U/L (7-52); AST 16 U/L (13-39); Albumin 4.3 g/dL (3.2-5.2); Albumin/Globulin Ratio 1.4 (1-3); Alkaline Phosphatase 48 U/L (34-104); Anion Gap 4 mmol/L (2-11); BUN/Creatinine Ratio 11.8 (8-20); Blood Urea Nitrogen 11 mg/dL (6-24); C Reactive Protein < 1.00 mg/L (<8.01); CO2 Carbon Dioxide 31 mmol/L (22-32); Calcium 9.2 mg/dL (8.6-10.3); Chloride 102 mmol/L (101-111); EGFR African American 104.5 (>60); EGFR Non-African American 86.4 (>60); Globulin 3.1 g/dL (2-4); Glucose 101 mg/dL (70-100); Potassium 4.2 mmol/L (3.5-5.0); Sodium 137 mmol/L (135-145); Total Protein 7.4 g/dL (6.4-8.9)
[2018-09-26 15:06] VITALS: BP 129/88
== END 2018-09-26 15:05 | disposition home or self-care (01) ==
LOC: ED 11:45
DX: N13.1 Hydronephrosis with ureteral stricture, not elsewhere classified (principal); N20.2 Calculus of kidney with calculus of ureter; I10 Essential (primary) hypertension; M79.7 Fibromyalgia; F41.9 Anxiety disorder, unspecified; F32.9 Major depressive disorder, single episode, unspecified; Z79.899 Other long term (current) drug therapy; Z88.3 Allergy status to other anti-infective agents
CPT/HCPCS: 36415; 74176; 80053; 81003; 81015; 83605; 85025; 86140; 99282

== ENCOUNTER 2021-03-26 01:49 | Observation (INO) ==
[2021-03-26] MEDS ORDERED: NS 0.9% 1000 ml BAG 1,000 ML IV ONE (02:05)
[2021-03-26 02:21] LABS: ABS Eosinophils 0.1 10^3/ul (0-0.6); ABS Lymphocytes 1.5 10^3/ul (1.0-4.8); ABS Monocytes 0.4 10^3/ul (0-0.8); ABS Neutrophils 3.2 10^3/ul (1.5-7.7); Eosinophil % 1.1 %; Hematocrit 45 % (42-52); Hemoglobin 15.1 g/dL (14.0-18.0); Lymphocyte % 29.6 %; Mean Corpuscular HGB Conc 34 g/dL (31-36); Mean Corpuscular Hemoglobin 32 pg (27-31); Mean Corpuscular Volume 93 fL (80-94); Mean Platelet Volume 8.9 fL (7.4-10.4); Nucleated Red Blood Cells % 0.1; Platelet Count 152 10^3/uL (150-450); Red Blood Count 4.78 10^6 /uL (4.18-5.48); Red Cell Distribution Width 14 % (10-15); White Blood Count 5.2 10^3/uL (3.5-10.8)
[2021-03-26 02:38] LABS: ALT 16 U/L (7-52); Acetaminophen < 15 mcg/mL; Albumin 4.3 g/dL (3.2-5.2); Albumin/Globulin Ratio 1.3 (1-3); Alcohol, S < 13 mg/dL (<13); Alkaline Phosphatase 47 U/L (35-149); Blood Urea Nitrogen 21 mg/dL (6-24); CO2 Carbon Dioxide 30 mmol/L (22-32); Calcium 9.3 mg/dL (8.6-10.3); Chloride 100 mmol/L (101-111); Creatine Kinase 86 U/L (10-223); Globulin 3.2 g/dL (2-4); Glucose 93 mg/dL (70-100); Salicylate < 2.50 mg/dL (<30); Sodium 136 mmol/L (135-145); Total Protein 7.5 g/dL (6.4-8.9); eGFR CKD-EPI 82.6 (>60)
[2021-03-26 02:55] LABS: TSH Ultra Thyroid Stim Horm 1.54 mcIU/mL (0.34-5.60)
[2021-03-26 03:08] LABS: AST 22 U/L (13-39); Anion Gap 6 mmol/L (2-11); Potassium 4.3 mmol/L (3.5-5.0)
[2021-03-26] MEDS ORDERED: NS 0.9% 1000 ml BAG 1,000 ML IV SCH (08:00)
[2021-03-26 15:55] LABS: Urine Appearance Cloudy; Urine Bilirubin Negative (Negative); Urine Blood Negative (Negative); Urine Color Yellow; Urine Glucose Negative (Negative); Urine Ketones Negative (Negative); Urine Nitrite Negative (Negative); Urine Protein Negative (Negative); Urine Specific Gravity 1.017 (1.002-1.030); Urine Urobilinogen Negative (Negative)
[2021-03-26 16:34] LABS: Urine Benzodiazepine Screen Presumptive Positive (None Detect); Urine Cannabinoids Screen None Detected (None Detect); Urine Opiates Screen None Detected (None Detect)
[2021-03-27 00:08] VITALS: BP 109/71
== END 2021-03-27 00:07 | disposition home or self-care (01) ==
LOC: EDHOLD 01:49 → ED 01:49 → SUATTDRO 09:44 → EDHOLD 03-27 00:07 → UNDODISOB 03-28 00:07
PROVIDERS: ADMIT Student in an Organized Health Care Education/Training Program; ATTEND Student in an Organized Health Care Education/Training Program